=== PATIENT | male | born 1990 | race Caucasian/White ===

== ENCOUNTER 2016-10-12 14:00 | Emergency (ER) | payer BC ==
[~2016-10-12] VITALS: Ht 180.3 cm; Wt 84.6 kg
[2016-10-12 14:16] VITALS: TEMP 37.3; Ht 180.3 cm; Wt 84.6 kg
[2016-10-12] MEDS ORDERED: FAMOTIDINE 20MG/102 ML D5W IV STA (15:02)
[2016-10-12] MEDS ORDERED: ONDANSETRON INJ 2 MG/ML 2 ML VIAL IV STA (15:02)
[2016-10-12] MEDS ORDERED: SODIUM CHLORIDE 0.9% 1000ML 2,000 ML IV STA (15:02)
[2016-10-12 15:48] LABS: BUN/CREATININE RATIO 12.7 (10-20); CALCIUM 8.7 mg/dl (8.5-10.1); CREATININE 0.82 mg/dl (0.60-1.40); POTASSIUM 3.2 mmol/L (3.5-5.1)
[2016-10-12 15:51] LABS: ALB/GLOB RATIO 0.9 (0.9-2)
[2016-10-12 15:52] LABS: URINE APPEARANCE CLEAR (CLEAR); URINE BILIRUBIN NEG (NEG); URINE COLOR YELLOW; URINE EPITHELIAL CELL AUTO >30 /lpf (0-5); URINE NITRITE NEG (NEG); URINE SPECIFIC GRAVITY 1.026 (1.000-1.030); UROBILINOGEN NEG (NEG)
[2016-10-12 15:56] LABS: MANUAL MICROSCOPIC REQUIRED? NO; REVIEW REQ? YES
[2016-10-12 16:05] LABS: URINE MUCUS PRESENT (NONE PRSENT)
--- NOTE | 2016-10-12 16:05 | DIAGNOSTIC IMAGING REPORT ---
ABDOMEN 2VIEW W/PA CHEST RTN CLINICAL HISTORY: EVAL COUGH, V/D pain. Nausea. COMPARISON STUDY: No previous studies for comparison. FINDINGS: The soft tissues, psoas shadows, renal outlines and intestinal gas pattern appear normal. There is no evidence for bowel obstruction. There is no evidence for free intraperitoneal air. No abnormal abdominal calcifications are seen. A frontal view of the chest was performed and is unremarkable. IMPRESSION: Normal study. Electronically signed by: Chavez Gibbons M.D. 10/12/2016 4:04 PM Dictated Date/Time: 10/12/2016 4:04 PM
[2016-10-12 17:19] LABS: BASO % 0.2 %; BASO ABS # 0.01 K/uL (0-0.2); COMPLETE YES; ECHINOCYTES 1+; HEMATOCRIT 39.3 % (42-52); IG% 0.2 %; LARGE PLATELETS 1+; LYMPH % 20.8 %; LYMPH ABS # 0.99 K/uL (1.2-3.4); MEAN CELL VOLUME 88.9 fL (80-100); MEAN CORPUSCULAR HGB CONC 34.9 g/dl (32-36); MEAN PLATELET VOLUME 12.3 fL (7.4-10.4); MONO % 17.3 %; NEUT % 61.5 %; PLATELET COUNT 49 K/uL (130-400); PLT ESTIMATE DECREASED; RED BLOOD COUNT 4.42 M/uL (4.7-6.1); WHITE BLOOD COUNT 4.75 K/uL (4.8-10.8)
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
[2016-10-12 18:36] VITALS: BP 137/82; PULSE 92; O2SAT 100
== END 2016-10-12 18:36 | disposition home or self-care (01) ==
LOC: C.EDB 14:01 → C.EDC 18:36
DX: R11.10 Vomiting, unspecified (principal); R19.7 Diarrhea, unspecified; D61.818 Other pancytopenia; F17.210 Nicotine dependence, cigarettes, uncomplicated

== ENCOUNTER 2017-07-21 04:12 | Emergency (ER) | payer SELFPAY ==
[~2017-07-21] VITALS: Ht 177.8 cm; Wt 96.1 kg
[2017-07-21 04:16] VITALS: TEMP 37.2; Ht 177.8 cm; Wt 96.1 kg
[2017-07-21] MEDS ORDERED: ONDANSETRON INJ 2 MG/ML 2 ML VIAL IV STA (04:29)
[2017-07-21] MEDS ORDERED: KETOROLAC TROMETHAMINE 30 MG/ML VIAL IV STA (04:29)
[2017-07-21 05:13] LABS: URINE APPEARANCE TURBID (CLEAR); URINE COLOR DK YELLOW; URINE EPITHELIAL CELL AUTO 0-5 /lpf (0-5); URINE NITRITE NEG (NEG); URINE SPECIFIC GRAVITY 1.031 (1.000-1.030); UROBILINOGEN NEG (NEG); ZZUR CULT IF INDIC CLEAN CATCH YES
[2017-07-21 05:16] LABS: BASO % 0.5 %; BASO ABS # 0.03 K/uL (0-0.2); COMPLETE YES; EOS % 0.2 %; HEMATOCRIT 44.3 % (42-52); IG% 0.3 %; LYMPH % 11.1 %; LYMPH ABS # 0.64 K/uL (1.2-3.4); MEAN CELL VOLUME 87.9 fL (80-100); MEAN CORPUSCULAR HEMOGLOBIN 29.8 pg (25-34); MEAN CORPUSCULAR HGB CONC 33.9 g/dl (32-36); MEAN PLATELET VOLUME 10.2 fL (7.4-10.4); MONO % 11.6 %; NEUT % 76.3 %; PLATELET COUNT 174 K/uL (130-400); RED BLOOD COUNT 5.04 M/uL (4.7-6.1); WHITE BLOOD COUNT 5.76 K/uL (4.8-10.8)
[2017-07-21 05:29] LABS: CREATININE 0.84 mg/dl (0.60-1.40)
[2017-07-21 05:30] LABS: BUN/CREATININE RATIO 9.4 (10-20); CALCIUM 8.7 mg/dl (8.5-10.1); POTASSIUM 3.6 mmol/L (3.5-5.1)
[2017-07-21 05:32] LABS: ALB/GLOB RATIO 1.2 (0.9-2)
[2017-07-21 05:59] LABS: MANUAL MICROSCOPIC REQUIRED? NO; REVIEW REQ? YES
[2017-07-21 06:00] LABS: URINE BILIRUBIN NEG (NEG)
[2017-07-21 06:04] LABS: URINE MUCUS PRESENT (NONE PRSENT)
[2017-07-21] MEDS ORDERED: CEFTRIAXONE SOD INJ 1 GM ADDVIAL IV STA (06:19)
[2017-07-21] MEDS ORDERED: CEFD300C2 PO (06:26)
[2017-07-21] MEDS ORDERED: AZITHROMYCIN 250 MG TAB PO ONE (06:30)
[2017-07-21 06:54] VITALS: BP 121/69; PULSE 85; O2SAT 97
--- NOTE | 2017-07-21 07:27 | DIAGNOSTIC IMAGING REPORT ---
ABDOMEN AND PELVIS CT WITHOUT CONTRAST CT DOSE: 1265.27 mGy.cm HISTORY: Left flank pain. dysuria. hx stones vs other TECHNIQUE: Multiaxial CT images of the abdomen and pelvis were performed without the use of intravenous and oral contrast according to the standard department stone protocol. A dose lowering technique was utilized adhering to the principles of ALARA. COMPARISON STUDY: None. FINDINGS: The lung bases are clear. The unenhanced liver, gallbladder, pancreas, and adrenal glands are unremarkable. No renal stones or hydronephrosis. No bowel wall thickening or obstruction. The pelvic organs are unremarkable. No suspicious lytic or blastic osseous lesions. Normal appendix. Tiny fat-containing umbilical hernia. The spleen is top normal in size measuring 12.5 cm in length IMPRESSION: No renal stones or hydronephrosis. No bowel wall thickening or obstruction. Normal appendix. Electronically signed by: Jason Lockett M.D. 07/21/2017 7:25 AM Dictated Date/Time: 07/21/2017 7:21 AM
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
== END 2017-07-21 06:58 | disposition home or self-care (01) ==
LOC: C.EDB 04:14
DX: R30.0 Dysuria (principal); R10.9 Unspecified abdominal pain; Z87.442 Personal history of urinary calculi